=== PATIENT | male | born 1995 | race African-American/Black ===

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

== ENCOUNTER 2017-03-12 21:14 | Emergency (ER) | payer SELFPAY ==
[~2017-03-12] VITALS: Ht 182.9 cm; Wt 68.0 kg
[~2017-03-12 21:14] MED LIST: DICY10CA53 PO; ONDA4TAB7 PO
--- NOTE | 2017-03-12 21:38 | PHYS DOC ---
Past Medical History Past Medical History: No Pertinent History Past Surgical History: No Surgical History Alcohol Use: None Drug Use: None Adult General Chief Complaint Chief Complaint: EARACHE/EAR PAIN HPI HPI Patient is a 21 year old male with history of smoking cigarettes who presents today with left ear pain moderate in nature that began today. Patient states his had a head cold for couple days. Patient denies any fever. He appears to be in pain. Review of Systems Review of Systems Constitutional: Denies fever or chills [] Eyes: Denies change in visual acuity, redness, or eye pain [] HENT: Left ear pain and nasal congestion Respiratory: Denies cough or shortness of breath [] Cardiovascular: No additional information not addressed in HPI [] GI: Denies abdominal pain, nausea, vomiting, bloody stools or diarrhea [] : Denies dysuria or hematuria [] Musculoskeletal: Denies back pain or joint pain [] Integument: Denies rash or skin lesions [] Neurologic: Denies headache, focal weakness or sensory changes [] Current Medications Current Medications Current Medications Medications (Trade) Dose Ordered Sig/Chandni Start Time Stop Time Status Last Admin Dose Admin Chlorphenir/ Hydrocodone Polistirex (Tussionex) 5 ml 1X STAT 03/12/17 21:33 03/12/17 21:34 UNV Allergies Allergies Allergies Coded Allergies Type Severity Reaction Last Updated Verified No Known Drug Allergies 10/09/16 No Physical Exam Physical Exam Constitutional: Well developed, well nourished, no acute distress, non-toxic appearance. [] HENT: Normocephalic, atraumatic, bilateral external ears normal, oropharynx moist, no oral exudates, patient is congested nasally Left TM is moderately injected. Eyes: PERRLA, EOMI, conjunctiva normal, no discharge. [] Neck: Normal range of motion, no tenderness, supple, no stridor. [] Cardiovascular:Heart rate regular rhythm, no murmur [] Lungs & Thorax: Bilateral breath sounds clear to auscultation [] Abdomen: Bowel sounds normal, soft, no tenderness, no masses, no pulsatile masses. [] Skin: Warm, dry, no erythema, no rash. [] Back: No tenderness, no CVA tenderness. [] Extremities: No tenderness, no cyanosis, no clubbing, ROM intact, no edema. [] Neurologic: Alert and oriented X 3, normal motor function, normal sensory function, no focal deficits noted. [] Psychologic: Affect normal, judgement normal, mood normal. [] EKG EKG [] Radiology/Procedures Radiology/Procedures [] Course & Med Decision Making Course & Med Decision Making Pertinent Labs and Imaging studies reviewed. (See chart for details) This is a 21-year-old male patient presented to the ED today with left ear pain and nasal congestion. He has left otitis media and an upper respiratory infection. He is also a smoker, we encouraged him to consider smoking cessation. He was discharged with amoxicillin, Tylenol No. 3 as needed for pain and ibuprofen. Follow-up with his own doctor in 1-2 weeks. Dragon Disclaimer Dragon Disclaimer This electronic medical record was generated, in whole or in part, using a voice recognition dictation system. Departure Departure Impression: Primary Impression: Otitis media Additional Impressions: Upper respiratory infection Smoking addiction Disposition: 01 HOME, SELF-CARE Condition: STABLE Referrals: NO PCP (PCP) follow up with your doctor in one week Patient Instructions: Otitis Media, Adult, Smoking Cessation, Tips For Success , Upper Respiratory Infection, Adult, [id number] Additional Instructions: You were seen for left ear infection and an upper respiratory infection. Consider taking [id number] cold medicines like Mucinex. Complete your oral antibiotics. Take the prescribed pain medicines as needed for pain. Follow- up with your own doctor in 1-2 weeks. Consider smoking cessation. Scripts Guaifenesin/Pseudoephedrne Hcl (MUCINEX D ER TABLET) 1 Each Tab.er.12h 1 TAB PO BID, #20 TAB Prov: AYDIN SULTANA APRN 03/12/17 Ibuprofen (IBUPROFEN) 800 Mg Tablet 800 MG PO PRN Q6HRS Y for INFLAMMATION, #20 TAB Prov: MUTAYDIN SQUIRES MARINE WELDER 17 Acetaminophen With Codeine (TYLENOL WITH CODEINE #3 TABLET) 1 Each Tablet 1 TAB PO PRN Q6HRS Y for PAIN, #30 TAB Prov: AYDIN SULTANA APRN 17 Benzonatate (TESSALON PERLE) 100 Mg Capsule 1 CAP PO TID, #30 CAP Prov: MUTAYDIN SQUIRES MARINE WELDER 03/12/17 Amoxicillin (AMOXICILLIN) 875 Mg Tablet 1 TAB PO BID, #20 TAB Prov: MUTUNGAAYDIN MARINE WELDER 03/12/17 Problem Qualifiers Primary Impression: Otitis media Otitis media type: other nonsuppurative Chronicity: acute Laterality: left Recurrence: not specified as recurrent Qualified Codes: H65.192 - Other acute nonsuppurative otitis media, left ear Additional Impressions: Upper respiratory infection URI type: unspecified URI Qualified Codes: J06.9 - Acute upper respiratory infection, unspecified AYDIN SULTANA MARINE WELDER Mar 12, 2017 21:37
[2017-03-12] MEDS ORDERED: BENZ100C PO (21:41)
[2017-03-12] MEDS ORDERED: GUAI-40 PO (21:41)
[2017-03-12] MEDS ORDERED: IBUP-1060 PO (21:41)
[2017-03-12] MEDS ORDERED: AMOX875T PO (21:41)
[2017-03-12] MEDS ORDERED: ACET-704 PO (21:41)
[2017-03-12 21:50] VITALS: BP 145/87
[2017-03-12] MEDS ORDERED: HYDROcodone/CHLORPHEN POLIS 5 ML SUS.ER.12H PO ONE (22:00)
[2017-03-12] MEDS ORDERED: AMOXICILLIN 250 MG CAPSULE. PO ONE (22:00)
== END 2017-03-12 21:55 | disposition home or self-care (01) ==
LOC: ER 21:14
DX: H65.192 Other acute nonsuppurative otitis media, left ear (principal); J06.9 Acute upper respiratory infection, unspecified; F17.210 Nicotine dependence, cigarettes, uncomplicated
CPT/HCPCS: 99283